=== PATIENT | female | born 1990 | race Caucasian/White ===

== ENCOUNTER 2016-09-08 09:28 | Inpatient (IN) | payer OTHER ==
[2016-09-08 09:42] VITALS: BMI 22.4
--- NOTE | 2016-09-08 10:03 | HP ---
COWS - Scale Resting Pulse: 1= [place] 81-100 Sweatin= Chills/Flushing Restless Observation: 1= Difficult to Sit Still Pupil Size: 0= Normal to Room Light Bone or Joint Aches: 1= Mild Discomfort Runny Nose/ Eye Tearin= Nasal Congestion GI Upset > 30mins: 1= Stomach Cramp Tremor Observation: 1= Tremor [place], Not Seen Yawning Observation: 1= 1-2x During Session Anxiety or Irritability: 1=Feels Anxious/Irritable Goose Flesh Skin: 0=Smooth Skin COWS Score: 9 Admission ROS S - HPI Chief Complaint: I want to stop using Allergies/Adverse Reactions: Allergies Allergy/AdvReac Type Severity Reaction Status Date / Time No Known Allergies Allergy Verified 09/08/16 10:06 History of Present Illness: 26 yo woman here for detox from opiates. Previous detox end of July 2016 at [place], [place]. Was on suboxone program until 08/01/16 but was not adherent to program. No drug related seizures. States the benzo in her urine was just one time, does not do it regularly. Exam Limitations: Clinical Condition - Ebola screening Have you traveled outside of the country in the last 21 days: No Have you had contact with anyone from an Ebola affected area: No Have you been sick,other than usual withdrawal symptoms: No Do you have a fever: No - Review of Systems Constitutional: Loss of Appetite, Night Sweats, Changes in sleep EENT: reports: Nose Congestion Respiratory: reports: No Symptoms reported Cardiac: reports: No Symptoms Reported GI: reports: Nausea : reports: Frequency Musculoskeletal: reports: Back Pain, Muscle Pain Integumentary: reports: No Symptoms Reported Neuro: reports: Headache Endocrine: reports: No Symptoms Reported Hematology: reports: No Symptoms Reported Psychiatric: reports: Judgement Intact, Mood/Affect Appropiate, Orientated x3, Anxious Other Systems: Reviewed and Negative Patient History - Patient Medical History Hx Anemia: No Hx Asthma: No Hx Chronic Obstructive Pulmonary Disease (COPD): No Hx Cancer: No Hx Cardiac Disorders: No Hx Congestive Heart Failure: No Hx Hypertension: No Hx Hypercholesterolemia: No Hx Pacemaker: No HX Cerebrovascular Accident: No Hx Seizures: No Hx Dementia: No Hx Diabetes: No Hx Gastrointestinal Disorders: No Hx Liver Disease: No Hx Genitourinary Disorders: No Hx Sexually Transmitted Disorders: No Hx Renal Disease (ESRD): No Hx Thyroid Disease: No Hx Human Immunodeficiency Virus (HIV): No Hx Hepatitis C: No Hx Depression: No Hx Suicide Attempt: No Hx Bipolar Disorder: No Hx Schizophrenia: No - Patient Surgical History Past Surgical History: Yes Hx Section: Yes (2006) - PPD History Previous Implant?: Yes Documented Results: Negative w/o proof PPD to be Administered?: Yes - Reproductive History Patient is a Female of Child Bearing Age (11 -55 yrs old): Yes Patient : No - Smoking Cessation Smoking history: Current every day smoker Have you smoked in the past 12 months: Yes Aproximately how many cigarettes per day: 2 Hx Chewing Tobacco Use: No Initiated information on smoking cessation: Yes 'Breaking Loose' booklet given: 09/08/16 (give on floor) - Substance & Tx. History Hx Alcohol Use: No Hx Substance Use: Yes Substance Use Type: Cocaine, Heroin, Opiates - Substances Abused Heroin Route: Injection Frequency: Daily Amount used: six bags Age of first use: 25 Date of Last Use: 09/06/16 Non-Rx Methadone Route: Oral Frequency: 3-6 times per week Amount used: 30mg Age of first use: 25 Date of Last Use: 09/07/16 Cocaine Route: Injection Frequency: 3-6 times per week Amount used: $25 Age of first use: 16 Date of Last Use: 09/07/16 Family Disease History - Family Disease History Family Disease History: Other: Father (, drowned, etoh, drugs), Mother ( alive, uses drugs), Sister (one sister murdered, etoh, drugs) Admission Physical Exam [facility] - Vital Signs Vital Signs: Vital Signs - 24 hr 09/08/16 09:30 Temperature 97.8 F Pulse Rate 86 Respiratory 18 Rate Blood Pressure 136/73 - Physical General Appearance: Yes: Nourished, Appropriately Dressed, Mild Distress HEENTM: Yes: Hearing grossly Normal, Normal ENT Inspection, Normocephalic, Normal Voice Respiratory: Yes: Normal Breath Sounds, No Respiratory Distress Neck: Yes: No masses,lesions,Nodules, Supple Breast: Yes: Breast Exam Deferred Cardiology: Yes: Regular Rhythm, Regular Rate Abdominal: Yes: Soft Genitourinary: Yes: Within Normal Limits Back: Yes: Normal Inspection Musculoskeletal: Yes: full range of Motion, Gait Steady Extremities: Yes: Normal Inspection, Normal Range of Motion Neurological: Yes: Fully Oriented, Alert, Normal Mood/Affect Integumentary: Yes: Normal Color, Warm Lymphatic: Yes: Within Normal Limits - Diagnostic (1) Uncomplicated opioid dependence Current Visit: Yes Status: Chronic (2) Cocaine dependence Current Visit: Yes Status: Chronic Qualifiers: Substance use status: uncomplicated Qualified Code(s): F14.20 - Cocaine dependence, uncomplicated Cleared for Admission [facility] - Detox or Rehab [facility] Level of Care: Medically Managed Detox Regimen/Protocol: Methadone [facility] Breath Alcohol Content Breath Alcohol Content: 0 Urine Pregancy Test - Result Urine Test Results: Negative- NO Line Present Urine Drug Screen - Results Drug Screen Negative: No Urine Drug Screen Results: CAM-Cocaine, BZO-Benzodiazepines, MTD-Methadone
[2016-09-08] MEDS ORDERED: MENTHOL/PHENOL 1 EACH UD MM PRN (10:26)
[2016-09-08] MEDS ORDERED: MAG HYDROX/AL HYDROX/SIMETH 30 ML UNIT-DOSE CUP PO PRN (10:26)
[2016-09-08] MEDS ORDERED: LOPERAMIDE HCL 2 MG CAPSULE PO PRN (10:26)
[2016-09-08] MEDS ORDERED: NICOTINE POLACRILEX 2 MG GUM BUC PRN (10:26)
[2016-09-08] MEDS ORDERED: ACETAMINOPHEN 325 MG TABLET (FP) PO PRN (10:26)
[2016-09-08] MEDS ORDERED: guaiFENesin/D-METHORPHAN HB 10 ML UNIT-DOSE CUPS PO PRN (10:26)
[2016-09-08] MEDS ORDERED: MAGNESIUM CITRATE 300 ML BOTTLE PO PRN (10:26)
[2016-09-08] MEDS ORDERED: P-EPHED 60MG/TRIPROLIDI 2.5MG TABLET PO PRN (10:26)
[2016-09-08] MEDS ORDERED: METHADONE HCL 10 MG TABLET (FOR DETOX USE ONLY) PO ONE ×2 (11:30→23:00)
[2016-09-08] MEDS: diazePAM 5 MG TABLET PO PRN ×2 (12:42→22:32)
--- NOTE | 2016-09-08 15:27 | CONSULT ---
[facility] Psychiatric Consult - Data Date of interview: 09/08/16 Admission source: [facility] Identifying data: First admission to [facility] for this 26 y/o female seeking detox treatment for heroin,xanax and cocaine dependence.Patient is single,a mother of two,homeless,unemployed and deprived of any source of income. Substance Abuse History: Smoking Cessation. Smoking history: Current every day smoker. Have you smoked in the past 12 months: Yes. Aproximately how many cigarettes per day: 2. Hx Chewing Tobacco Use: No. Initiated information on smoking cessation: Yes. 'Breaking Loose' booklet given: 09/08/16 (give on floor ). - Substance & Tx. History. Hx Alcohol Use: No. Hx Substance Use: Yes. Substance Use Type: Cocaine, Heroin, Opiates. - Substances Abused. Heroin. Route: Injection. Frequency: Daily. Amount used: six bags. Age of first use : 25. Date of Last Use: 09/06/16. Non-Rx Methadone. Route: Oral. Frequency: 3-6 times per week. Amount used: 30mg. Age of first use: 25. Date of Last Use: 09/07/16. Cocaine. Route: Injection. Frequency: 3-6 times per week. Amount used: $25. Age of first use: 16. Date of Last Use: . Confirmed by the patient. Medical History: Patient endorses good general health. Psychiatric History: Patient denies. Physical/Sexual Abuse/Trauma History: Patient denies. Additional Comment: Urine Drug Screen Results: CAM-Cocaine, BZO-Benzodiazepines , MTD-Methadone.Noted. Mental Status Exam - Mental Status Exam Alert and Oriented to: Time, Place, Person Cognitive Function: Good Patient Appearance: Unkempt, Disheveled Mood: Anxious, Apprehensive Affect: Mood Congruent Patient Behavior: Fatigued, Appropriate, Cooperative Speech Pattern: Clear Voice Loudness: Normal Thought Process: Goal Oriented Thought Disorder: Not Present Hallucinations: Denies Suicidal Ideation: Denies Homicidal Ideation: Denies Insight/Judgement: Poor Sleep: Poorly, Difficulty falling asleep Appetite: Good Muscle strength/Tone: Normal Gait/Station: Normal Psychiatric Findings - Problem List ([place] 1, 2,3) (1) Uncomplicated opioid dependence Current Visit: Yes Status: Acute (2) Cocaine dependence Current Visit: Yes Status: Acute Qualifiers: Substance use status: uncomplicated Qualified Code(s): F14.20 - Cocaine dependence, uncomplicated (3) Benzodiazepine dependence Current Visit: Yes Status: Acute (4) Insomnia Current Visit: Yes Status: Acute - Initial Treatment Plan Initial Treatment Plan: Psychoeducation.Detoxification.Zolpidem 10 mg po hs prn.Patient is made aware of risk of parasomnias.She agrees with this plan.Observation.
[2016-09-08 19:29] LABS: URINE APPEARANCE CLEAR; URINE BILIRUBIN NEGATIVE (NEGATIVE); URINE BLOOD NEGATIVE (NEGATIVE); URINE COLOR YELLOW; URINE GLUCOSE (UA) NEGATIVE (NEGATIVE); URINE KETONE NEGATIVE (NEGATIVE); URINE LEUK ESTERASE NEGATIVE (NEGATIVE); URINE NITRITE NEGATIVE (NEGATIVE); URINE PROTEIN NEGATIVE (NEGATIVE); URINE UROBILINOGEN NEGATIVE E.U./dl (0.2-1.0)
[2016-09-08] MEDS ORDERED: diphenhydrAMINE HCL 50 MG CAPSULE PO PRN (22:00)
[2016-09-08] MEDS: ZOLPIDEM TARTRATE 5 MG TABLET PO PRN (22:32)
[2016-09-08] MEDS: THIAMINE HCL 100 MG TABLET (FP) PO SCH (22:32)
[2016-09-09] MEDS: IBUPROFEN 400 MG TABLET (FP) PO PRN ×2 (01:24→20:20)
[2016-09-09] MEDS ORDERED: METHADONE HCL 10 MG TABLET (FOR DETOX USE ONLY) PO ONE (10:00)
[2016-09-09] MEDS: PRENATAL VITAMINS W/ FOLIC ACID TABLET (FP) PO SCH (10:38)
[2016-09-09 10:52] LABS: MCH 27.1 pg (25.7-33.7); MCHC 32.3 g/dl (32.0-36.0); MEAN CELL VOLUME 83.8 fl (80-96); MEAN PLT VOLUME 10.2 fl (7.5-11.1); PLATELET COUNT 164 K/MM3 (134-434); WHITE BLOOD COUNT 5.3 K/mm3 (4.0-10.0)
[2016-09-09 11:06] LABS: ALBUMIN 4.6 g/dl (3.4-5.0); ANION GAP 9 (8-16); CALCIUM 9.8 mg/dL (8.5-10.1); CO2 30 mmol/L (21-32); GLUCOSE,RANDOM 101 mg/dL (74-106)
[2016-09-09 11:10] LABS: ALK PHOS 79 U/L (45-117); BILIRUBIN,TOTAL 0.5 mg/dL (0.2-1.0); CREATININE 0.8 mg/dL (0.55-1.02); SGOT/AST 9 U/L (15-37); SGPT/ALT 18 U/L (12-78)
[2016-09-09] MEDS: diazePAM 5 MG TABLET PO PRN ×3 (12:35→22:26)
[2016-09-09] MEDS ORDERED: COLLOIDAL OATMEAL 1 BAR EACH TP PRN (12:41)
[2016-09-09] MEDS ORDERED: HYDROCORTISONE 0.5% TOPICAL CREAM 30 GM TUBE TP SCH (12:45)
[2016-09-09] MEDS: HYDROCORTISONE 1% TOPICAL CREAM 30 GM TUBE TP SCH ×2 (14:51→22:26)
--- NOTE | 2016-09-09 16:46 | PN ---
[facility] COWS - Scale Resting Pulse: 0= [place] 80 or Below Sweatin= Chills/Flushing Restless Observation: 3= Extraneous Movement Pupil Size: 0= Normal to Room Light Bone or Joint Aches: 2= Severe Diffuse Aches Runny Nose/ Eye Tearin= Runny Nose/Eyes GI Upset > 30mins: 5=Frequent Vomit/Diarrhea Tremor Observation of Outstretched Hands: 2= Slight Tremor Visible Yawning Observation: 0= None Anxiety or Irritability: 2=Irritable/Anxious Goose Flesh Skin: 0=Smooth Skin COWS Score: 17 BHS Progress Note (SOAP) Subjective: Diarrhea, sweating, vomiting (vomit once last night), rhinorrhea; c/o rash on back after shower (rash r/t soap as per patient) Objective: 09/09/16 16:43 Last Vital Signs Temp Pulse Resp BP Pulse Ox 96.3 F L 76 18 127/92 09/09/16 14:09 09/09/16 14:09 09/09/16 14:09 09/09/16 14:09 Laboratory Tests 09/08/16 09/09/16 09/09/16 17:55 06:00 06:00 WBC 5.3 RBC 5.00 Hgb 13.5 Hct 41.9 MCV 83.8 MCHC 32.3 RDW 17.0 H Plt Count 164 MPV 10.2 Sodium 142 Potassium 3.9 Chloride 103 Carbon Dioxide 30 Anion Gap 9 BUN 22 H Creatinine 0.8 Creat Clearance w eGFR > 60 Random Glucose 101 Calcium 9.8 Total Bilirubin 0.5 AST 9 L ALT 18 Alkaline Phosphatase 79 Total Protein 8.0 Albumin 4.6 Urine Color Yellow Urine Appearance Clear Urine pH 7.0 Ur Specific [place] 1.021 Urine Protein Negative Urine Glucose (UA) Negative Urine Ketones Negative Urine Blood Negative Urine Nitrite Negative Urine Bilirubin Negative Urine Urobilinogen Negative Ur Leukocyte Esterase Negative RPR Titer 09/09/16 06:00 WBC RBC Hgb Hct MCV MCHC RDW Plt Count MPV Sodium Potassium Chloride Carbon Dioxide Anion Gap BUN Creatinine Creat Clearance w eGFR Random Glucose Calcium Total Bilirubin AST ALT Alkaline Phosphatase Total Protein Albumin Urine Color Urine Appearance Urine pH Ur Specific [place] Urine Protein Urine Glucose (UA) Urine Ketones Urine Blood Urine Nitrite Urine Bilirubin Urine Urobilinogen Ur Leukocyte Esterase RPR Titer Nonreactive Labs noted Assessment: 09/09/16 16:45 Withdrawal symptoms c/o contact dermatitis Plan: Continue detox, encouraged to drink lots of water Contact dermatitis: aveeno soap daily prn, hydrocortisone cream 1% bid to affected areas
[2016-09-09] MEDS: MAGNESIUM HYDROX 2400MG/30ML ORAL SUSPENSION 30 ML CUP PO PRN (17:11)
[2016-09-09] MEDS: ZOLPIDEM TARTRATE 5 MG TABLET PO PRN (22:26)
[2016-09-09] MEDS: THIAMINE HCL 100 MG TABLET (FP) PO SCH (22:26)
--- NOTE | 2016-09-09 22:32 | EKG ---
Test Reason : Blood Pressure : / mmHG Vent. Rate : 085 BPM Atrial Rate : 085 BPM P-R Int : 148 ms QRS Dur : 078 ms QT Int : 358 ms P-R-T Axes : -01 008 043 degrees QTc Int : 426 ms NORMAL SINUS RHYTHM WITH SINUS ARRHYTHMIA MINIMAL VOLTAGE CRITERIA FOR LVH, MAY BE NORMAL VARIANT BORDERLINE ECG NO PREVIOUS ECGS AVAILABLE Confirmed by SASCHA DONNELLY MD ([id number]) on 09/09/2016 10:32:20 PM Referred By: Confirmed By:SASCHA DONNELLY MD
[2016-09-10] MEDS ORDERED: METHADONE HCL 5 MG TABLET (FOR DETOX USE ONLY) PO ONE (10:00)
[2016-09-10] MEDS: PRENATAL VITAMINS W/ FOLIC ACID TABLET (FP) PO SCH (10:31)
[2016-09-10] MEDS: IBUPROFEN 400 MG TABLET (FP) PO PRN ×2 (10:31→20:09)
[2016-09-10] MEDS: HYDROCORTISONE 1% TOPICAL CREAM 30 GM TUBE TP SCH ×2 (10:31→22:22)
[2016-09-10] MEDS: ONDANSETRON *ODT* 4 MG TABLET SL PRN (11:25)
--- NOTE | 2016-09-10 12:01 | PN ---
B[facility] COWS - Scale Resting Pulse: 1= [place] 81-100 Sweatin=Flushed/Facial Moisture Restless Observation: 1= Difficult to Sit Still Pupil Size: 1= Pupils >than Normal Bone or Joint Aches: 1= Mild Discomfort Runny Nose/ Eye Tearin= Nasal Congestion GI Upset > 30mins: 2= Nausea/Diarrhea Tremor Observation of Outstretched Hands: 0= None Yawning Observation: 0= None Anxiety or Irritability: 1=Feels Anxious/Irritable Goose Flesh Skin: 0=Smooth Skin COWS Score: 10 BHS Progress Note (SOAP) Subjective: interrupted sleep, sweats , shakes, nausea Objective: 09/10/16 11:58 Vital Signs Temperature 98.6 F 09/10/16 10:00 Pulse Rate 88 09/10/16 10:00 Respiratory Rate 18 09/10/16 10:00 Blood Pressure 112/68 09/10/16 10:00 O2 Sat by Pulse Oximetry (%) Laboratory Tests 09/08/16 09/09/16 09/09/16 17:55 06:00 06:00 WBC 5.3 RBC 5.00 Hgb 13.5 Hct 41.9 MCV 83.8 MCHC 32.3 RDW 17.0 H Plt Count 164 MPV 10.2 Sodium 142 Potassium 3.9 Chloride 103 Carbon Dioxide 30 Anion Gap 9 BUN 22 H Creatinine 0.8 Creat Clearance w eGFR > 60 Random Glucose 101 Calcium 9.8 Total Bilirubin 0.5 AST 9 L ALT 18 Alkaline Phosphatase 79 Total Protein 8.0 Albumin 4.6 Urine Color Yellow Urine Appearance Clear Urine pH 7.0 Ur Specific [place] 1.021 Urine Protein Negative Urine Glucose (UA) Negative Urine Ketones Negative Urine Blood Negative Urine Nitrite Negative Urine Bilirubin Negative Urine Urobilinogen Negative Ur Leukocyte Esterase Negative RPR Titer 09/09/16 06:00 WBC RBC Hgb Hct MCV MCHC RDW Plt Count MPV Sodium Potassium Chloride Carbon Dioxide Anion Gap BUN Creatinine Creat Clearance w eGFR Random Glucose Calcium Total Bilirubin AST ALT Alkaline Phosphatase Total Protein Albumin Urine Color Urine Appearance Urine pH Ur Specific [place] Urine Protein Urine Glucose (UA) Urine Ketones Urine Blood Urine Nitrite Urine Bilirubin Urine Urobilinogen Ur Leukocyte Esterase RPR Titer Nonreactive pt aox3 in nad ambulating Assessment: 09/10/16 11:59 withdrawal sx;s constipation Plan: cont. detrox increase fluids [id number] aveeno soap zofran prn
[2016-09-10] MEDS ORDERED: ONDANSETRON *ODT* 4 MG TABLET SL ONE (12:02)
[2016-09-10] MEDS ORDERED: BISACODYL 5 MG TABLET.DR (FP) PO ONE (12:03)
[2016-09-10] MEDS: diazePAM 5 MG TABLET PO PRN ×3 (12:48→22:23)
[2016-09-10] MEDS: ZOLPIDEM TARTRATE 5 MG TABLET PO PRN (22:22)
[2016-09-10] MEDS: THIAMINE HCL 100 MG TABLET (FP) PO SCH (22:23)
[2016-09-11] MEDS: diazePAM 5 MG TABLET PO PRN ×2 (06:14→10:16)
[2016-09-11] MEDS: IBUPROFEN 400 MG TABLET (FP) PO PRN ×2 (06:14→23:10)
[2016-09-11] MEDS ORDERED: METHADONE HCL 5 MG TABLET (FOR DETOX USE ONLY) PO ONE (10:00)
[2016-09-11] MEDS: ONDANSETRON *ODT* 4 MG TABLET SL PRN (10:16)
[2016-09-11] MEDS: PRENATAL VITAMINS W/ FOLIC ACID TABLET (FP) PO SCH (10:16)
[2016-09-11] MEDS: HYDROCORTISONE 1% TOPICAL CREAM 30 GM TUBE TP SCH ×2 (10:17→23:04)
--- NOTE | 2016-09-11 10:32 | PN ---
BHS Progress Note (SOAP) Subjective: nausea agitation sweats restless Objective: 09/11/16 10:31 Vital Signs Temperature 97.5 F L 09/11/16 10:03 Pulse Rate 75 09/11/16 10:03 Respiratory Rate 16 09/11/16 10:03 Blood Pressure 124/84 09/11/16 10:03 O2 Sat by Pulse Oximetry (%) awake/alert ambulating no acute distress Assessment: 09/11/16 10:32 withdrawal sx Plan: continue detox increase fluids zofran prn
[2016-09-11] MEDS: hydrOXYzine PAMOATE 50 MG CAPSULE (FP) PO PRN (13:27)
[2016-09-11] MEDS: THIAMINE HCL 100 MG TABLET (FP) PO SCH (22:52)
[2016-09-11] MEDS: ZOLPIDEM TARTRATE 5 MG TABLET PO PRN (23:00)
[2016-09-12] MEDS ORDERED: METHADONE HCL 10 MG TABLET (FOR DETOX USE ONLY) PO ONE (10:00)
[2016-09-12] MEDS: PRENATAL VITAMINS W/ FOLIC ACID TABLET (FP) PO SCH (10:43)
[2016-09-12] MEDS: HYDROCORTISONE 1% TOPICAL CREAM 30 GM TUBE TP SCH ×2 (10:44→22:33)
[2016-09-12] MEDS: hydrOXYzine PAMOATE 50 MG CAPSULE (FP) PO PRN ×3 (10:46→23:34)
--- NOTE | 2016-09-12 14:21 | PN ---
BHS Progress Note (SOAP) Subjective: feeling ok except for some bodyaches Objective: 09/12/16 14:20 Vital Signs Temperature 96.3 F L 09/12/16 10:00 Pulse Rate 89 09/12/16 10:00 Respiratory Rate 20 09/12/16 10:00 Blood Pressure 131/77 09/12/16 10:00 O2 Sat by Pulse Oximetry (%) Laboratory Tests 09/08/16 09/09/16 09/09/16 17:55 06:00 06:00 WBC 5.3 RBC 5.00 Hgb 13.5 Hct 41.9 MCV 83.8 MCHC 32.3 RDW 17.0 H Plt Count 164 MPV 10.2 Sodium Potassium Chloride Carbon Dioxide Anion Gap BUN Creatinine Creat Clearance w eGFR Random Glucose Calcium Total Bilirubin AST ALT Alkaline Phosphatase Total Protein Albumin Urine Color Yellow Urine Appearance Clear Urine pH 7.0 Ur Specific [place] 1.021 Urine Protein Negative Urine Glucose (UA) Negative Urine Ketones Negative Urine Blood Negative Urine Nitrite Negative Urine Bilirubin Negative Urine Urobilinogen Negative Ur Leukocyte Esterase Negative RPR Titer Hepatitis C Antibody >11.0 H 09/09/16 09/09/16 06:00 06:00 WBC RBC Hgb Hct MCV MCHC RDW Plt Count MPV Sodium 142 Potassium 3.9 Chloride 103 Carbon Dioxide 30 Anion Gap 9 BUN 22 H Creatinine 0.8 Creat Clearance w eGFR > 60 Random Glucose 101 Calcium 9.8 Total Bilirubin 0.5 AST 9 L ALT 18 Alkaline Phosphatase 79 Total Protein 8.0 Albumin 4.6 Urine Color Urine Appearance Urine pH Ur Specific [place] Urine Protein Urine Glucose (UA) Urine Ketones Urine Blood Urine Nitrite Urine Bilirubin Urine Urobilinogen Ur Leukocyte Esterase RPR Titer Nonreactive Hepatitis C Antibody pt aox3 in nad ambulating Assessment: 09/12/16 14:20 withdrawal sx;s Plan: cont. detox increase fluids d/c in am
[2016-09-12] MEDS: MAGNESIUM HYDROX 2400MG/30ML ORAL SUSPENSION 30 ML CUP PO PRN (20:24)
[2016-09-12] MEDS: ZOLPIDEM TARTRATE 5 MG TABLET PO PRN (22:33)
[2016-09-12] MEDS: THIAMINE HCL 100 MG TABLET (FP) PO SCH (22:33)
[2016-09-12] MEDS: IBUPROFEN 400 MG TABLET (FP) PO PRN (23:34)
[2016-09-13] MEDS: IBUPROFEN 400 MG TABLET (FP) PO PRN (05:49)
[2016-09-13] MEDS: hydrOXYzine PAMOATE 50 MG CAPSULE (FP) PO PRN (05:49)
[2016-09-13] MEDS ORDERED: METHADONE HCL 5 MG TABLET (FOR DETOX USE ONLY) PO ONE (06:00)
[2016-09-13 06:53] VITALS: BP 106/66; PULSE 69; TEMP 96.7
--- NOTE | 2016-09-13 09:24 | DS ---
[facility] Detox Discharge Summary Admission Date: 09/08/16 Discharge Date: 09/13/16 - History Present History: Cocaine Dependence, Opioid Dependence, Sedative Dependence - Physical Exam Results Vital Signs: Vital Signs Temperature 96.7 F L 09/13/16 06:53 Pulse Rate 69 09/13/16 06:53 Respiratory Rate 18 09/13/16 06:53 Blood Pressure 106/66 09/13/16 06:53 O2 Sat by Pulse Oximetry (%) - Treatment Hospital Course: Detox Protocol Followed, Detoxed Safely, Responded well, Discharged Condition Good, Rehab Referral Accepted - Medication Discharge Medications: Ambulatory Orders NK [No Known Home Medication] 09/08/16 - Diagnosis (1) Benzodiazepine dependence Current Visit: Yes Status: Chronic (2) Cocaine dependence Current Visit: Yes Status: Chronic Qualifiers: Substance use status: uncomplicated Qualified Code(s): F14.20 - Cocaine dependence, uncomplicated (3) Insomnia Current Visit: Yes Status: Acute (4) Uncomplicated opioid dependence Current Visit: Yes Status: Chronic - AMA Did Patient Leave Against Medical Advice: No
== END 2016-09-13 09:15 | disposition home or self-care (01) | DRG 773 ==
LOC: YASAS 09:28 → Y6N 11:18
PROVIDERS: ADMIT Internal Medicine; ATTEND Internal Medicine Addiction Medicine
PROC: HZ2ZZZZ Detoxification Services for Substance Abuse Treatment (ICD-10-PCS; principal; 2016-09-08)
DX: F11.23 Opioid dependence with withdrawal (principal); F13.230 Sedative, hypnotic or anxiolytic dependence with withdrawal, uncomplicated; G47.00 Insomnia, unspecified; L25.9 Unspecified contact dermatitis, unspecified cause; K59.00 Constipation, unspecified; Z72.0 Tobacco use
CPT/HCPCS: 36415; 80053; 81003; 85027; 86593; 93005; 93010